=== PATIENT | female | born 1955 | race Caucasian/White ===

== ENCOUNTER → 2023-09-20 11:22 | Outpatient (REF) | payer MEDICARE, SELFPAY | LOC: WDC 11:22 | PROVIDERS: ATTENDING PHYSICIAN Obstetrics & Gynecology Gynecology; FAMILY PHYSICIAN Family Medicine | DX: Z12.31 Encounter for screening mammogram for malignant neoplasm of breast (principal) | CPT/HCPCS: 77063; 77067 ==

== ENCOUNTER → 2024-09-20 12:42 | Outpatient (REF) | payer MEDICARE, SELFPAY | LOC: WDC 12:42 | PROVIDERS: ATTENDING PHYSICIAN Obstetrics & Gynecology Gynecology; FAMILY PHYSICIAN Family Medicine | DX: M85.89 Other specified disorders of bone density and structure, multiple sites (principal); Z12.31 Encounter for screening mammogram for malignant neoplasm of breast | CPT/HCPCS: 77063; 77067; 77080 ==